=== PATIENT | female | born 1950 | race Caucasian/White ===

== ENCOUNTER 2019-05-04 11:27 | Outpatient (CLI) | payer SELFPAY ==
[2019-05-05 05:13] LABS: RPR Non Reactive (Non Reactive)
[2019-05-05 07:10] LABS: MUMPS ANTIBODIES, IGG 84.6 AU/mL (Immune >10.9); RUBEOLA ANTIBODIES, IGG >300.0 AU/mL (Immune >16.4)
== END 2019-05-04 23:59 | disposition home or self-care (01) ==
LOC: LAB 11:27
PROVIDERS: ATTEND Internal Medicine
DX: Z02.89 Encounter for other administrative examinations (principal)
CPT/HCPCS: 36415; 86592; 86735; 86762; 86765

== ENCOUNTER → 2020-11-21 | Outpatient (CLI) | payer MEDICAID ==
[~2020-11-21] VITALS: Ht 160 cm; Wt 83.5 kg
[2020-11-21] VITALS (9 sets, daily range): BP systolic 139–167; BP diastolic 62–78
[~2020-11-21] MED LIST: aminophylline 250mg/10ml inj. IV PRN; nitroGLYCERIN 0.4mg SUBLingual tab SL PRN; normal saline 500ml IV soln 500 ML IV ONE; regadenoson 0.4mg/5ml syringe IV ONE; regadenoson 0.4mg/5ml syringe IV PRN
== END | disposition home or self-care (01) ==
LOC: RAD 08:52
PROVIDERS: ATTEND Internal Medicine Interventional Cardiology
DX: Z01.810 Encounter for preprocedural cardiovascular examination (principal); R06.02 Shortness of breath; R03.0 Elevated blood-pressure reading, without diagnosis of hypertension; F17.210 Nicotine dependence, cigarettes, uncomplicated
CPT/HCPCS: 78452; 93017; A9500; J0280; J2785; J7040

== ENCOUNTER 2021-02-24 11:39 | Outpatient (CLI) | payer MEDICAID | END 2021-02-24 23:59 | disposition home or self-care (01) | LOC: RAD 11:39 | PROVIDERS: ATTEND Orthopaedic Surgery | DX: M17.12 Unilateral primary osteoarthritis, left knee (principal) | CPT/HCPCS: 73564 ==

== ENCOUNTER 2021-04-09 13:00 | Inpatient (IN) | payer MEDICAID ==
[2021-04-03 12:04] LABS: BASOPHILS % (AUTO) 0.6 % (0-1); EOSINOPHILS # (AUTO) 0.1 X10'3 (0-0.9); MONOCYTES # (AUTO) 0.7 X10'3 (0-0.9); RED CELL DISTRIBUTION WIDTH 13.4 % (11.5-14.5)
[2021-04-03 12:06] LABS: EOSINOPHILS % (AUTO) 0.8 % (0-6); LYMPHOCYTES # (AUTO) 1.3 X10'3 (1.1-4.8); LYMPHOCYTES % (AUTO) 16.6 % (21-51); MEAN CORPUSCULAR HEMOGLOBIN 29.6 PG (27.0-31.0); MEAN CORPUSCULAR HGB CONC 32.8 g/dL (33.0-36.5); MEAN CORPUSCULAR VOLUME 90.5 FL (78-98); MEAN PLATELET VOLUME 6.8 FL (7.4-10.4); MONOCYTES % (AUTO) 8.4 % (2-12); NEUTROPHILS % (AUTO) 73.6 % (42-75); PRE OP HEMATOCRIT 30.8 % (35.0-45.0); PRE OP PLATELET COUNT 649 X10'3 (140-440)
[2021-04-03 12:18] LABS: ALBUMIN 2.5 G/DL (3.4-5.0); ALBUMIN/GLOBULIN RATIO 0.5 (1.1-1.5); ALKALINE PHOSPHATASE 93 IU/L (46-116); BLOOD UREA NITROGEN 12 MG/DL (7-18); BUN/CREATININE RATIO 15.2 (6.6-38.0); CALCIUM 9.3 MG/DL (8.5-10.1); CHLORIDE 103 MMOL/L (99-107); CREATININE 0.79 MG/DL (0.40-0.90); PRE OP ALT 15 U/L (30-65); PRE OP ANION GAP 10 (8-16); PRE OP AST 16 U/L (10-37); PRE OP BILIRUB, TOTAL 0.3 MG/DL (0.0-1.0); PRE OP GLUCOSE 105 MG/DL (70-104); PRE OP POTASSIUM 4.3 MMOL/L (3.4-5.1); PRE OP SODIUM 140 MMOL/L (135-145); TOTAL CARBON DIOXIDE 27.2 MMOL/L (24-32); TOTAL PROTEIN 7.9 G/DL (6.4-8.2); eGFR 72 ML/MIN
[2021-04-03 12:51] LABS: PRE OP HEMOGLOBIN 10.1 g/dL (12.0-16.0)
[~2021-04-09] VITALS: Ht 160 cm; Wt 81.1 kg
[~2021-04-09 13:00] MED LIST changes: +CELE-193 PO; +DICL75TA5 PO; +OMEP20CA15 PO; +TRAM50TA2 PO; +TYL650S PO; +albuterol 2.5 MG/3 ML nebule NEB ONE; -aminophylline 250mg/10ml inj. IV PRN; +cefazolin/dext.iso 2gm/50ml IV ONE; +famotidine 20mg tablet PO ONE; -nitroGLYCERIN 0.4mg SUBLingual tab SL PRN; -normal saline 500ml IV soln 500 ML IV ONE; -regadenoson 0.4mg/5ml syringe IV ONE; -regadenoson 0.4mg/5ml syringe IV PRN; +ringers solution, lacted 1,000 ML IV SCH; +vancomycin 1,500 MG in NS 300ml IV soln IV ONE
[2021-04-16] VITALS (19 sets, daily range): BP systolic 119–157; BP diastolic 62–80
[2021-04-16] MEDS ORDERED: ringers solution, lacted 1,000 ML IV SCH ×2 (05:00→08:45)
[2021-04-16] MEDS ORDERED: cefazolin/dext.iso 2gm/50ml IV ONE (05:30)
[2021-04-16] MEDS ORDERED: vancomycin 1,500 MG in NS 300ml IV soln IV ONE (05:30)
[2021-04-16] MEDS ORDERED: famotidine 20mg tablet PO ONE (05:30)
[2021-04-16] MEDS ORDERED: Thrombin (Bovine) 5,000 unit vial TP ONE (06:44)
[2021-04-16] MEDS ORDERED: vancomycin 1,000mg inj ONE (06:44)
[2021-04-16] MEDS ORDERED: ROPIVAcaine inj 200 MG, ketorolac trometh inj. 15 MG, epiNEPHrine inj 0.6 MG, morphine ... IU ONE ×5 (06:50)
[2021-04-16] MEDS ORDERED: tetracaine 1% (10mg/ml) pres. free inj. ONE (07:18)
[2021-04-16] MEDS ORDERED: MIDAZolam 1 MG/ML 5ML VIAL ONE (07:20)
[2021-04-16] MEDS: TRANEXAMIC ACID 1 GM IN NACL,ISO-OS 100 ML IV ONE (08:03)
[2021-04-16] MEDS ORDERED: fentaNYL/PF 50MCG/1 ML 2ML syringe ONE (08:06)
[2021-04-16] MEDS ORDERED: morphine 4 MG/ML inj SYRINge IV PRN (08:45)
[2021-04-16] MEDS ORDERED: hydrALAZINE 20mg/ml inj. IV PRN (08:45)
[2021-04-16] MEDS ORDERED: proCHLORperazine 10 MG/2 ml inj IV PRN (08:45)
[2021-04-16] MEDS ORDERED: ondansetron/PF 4mg/2ml inj IV PRN ×2 (08:45→10:25)
[2021-04-16] MEDS ORDERED: ROPIVAcaine 0.2% (10 MG/5 ML) BOLUS INJECTION ADDCANAL PRN (08:45)
[2021-04-16] MEDS ORDERED: HYDROmorphone/PF 0.2 MG/ML SYRINGE IV PRN ×2 (08:45)
[2021-04-16] MEDS ORDERED: morphine 2 MG/ML inj. syringe IV PRN (08:45)
[2021-04-16] MEDS ORDERED: labetalol 20mg/4ml (5mg/ml) syringe IV PRN (08:45)
[2021-04-16] MEDS ORDERED: meperidine/PF 25mg/ml syringe IV PRN (08:45)
[2021-04-16] MEDS ORDERED: ROPIVAcaine 0.2%/PF PUMP/bolus 545 ML ADDCANAL SCH (08:45)
[2021-04-16] MEDS ORDERED: acetaminophen 1,000mg/100ml IV 100 ML IV PRN (08:45)
[2021-04-16] MEDS ORDERED: propofol inj 20 ML IV ONE ×3 (09:28)
[2021-04-16] MEDS ORDERED: ROPIVAcaine 0.5% (5mg/ml) 30ml vial ONE (09:28)
--- NOTE | 2021-04-16 10:10 | NUR ---
Received from OR via ORTHO BED , accompanied by Anesthesiologist NIGHAT and report given by Anesthesiolgist. PATIENT WITH 18G PIV IN LEFT HAND RUNNING LR AT 100. DENIES PAIN. RIGHT LE AT T12-L1 SENSATION. VSS. + DP ON RIGHT FOOT. PATIENT WITH KNEE WRAP IN PLACE AND POWDER PACK IN PLACE. NO DRAINAGE PRESENT. BILNIRALI SCDS. Addendum: 04/16/21 at 1029 by Albino Alcala RN, RN Amended: Links added.
[2021-04-16] MEDS ORDERED: acetaminophen 325mg tablet PO PRN (10:25)
[2021-04-16] MEDS ORDERED: tranexamic acid inj. 810 MG in normal saline 100ml IV soln 100 ML IV ONE ×2 (10:25→17:00)
[2021-04-16] MEDS ORDERED: magnesium hydroxide 30ml (MOM) UD suspension PO PRN (10:25)
[2021-04-16] MEDS ORDERED: diphenhydrAMINE 25mg capsule PO PRN ×2 (10:25)
[2021-04-16] MEDS ORDERED: HYDROmorphone inj. 0.5 MG/0.5 ML DISP.SYRIN IV PRN (10:25)
[2021-04-16] MEDS ORDERED: bisacodyl 10mg suppository rectal RC PRN (10:25)
[2021-04-16] MEDS ORDERED: HYDROmorphone 1 mg/ml syringe IV PRN (10:25)
[2021-04-16] MEDS ORDERED: oxyCODONE IR 5mg (immed. release) tablet PO PRN ×2 (10:25)
--- NOTE | 2021-04-16 11:40 | NUR ---
PATIENT HAS MET ALL CRITERIA FOR TRANSFER TO THE SURGICAL FLOOR. VSS. DRESSINGS INTACT. BED LOW, CALL LIGHT PRESENT AND 2 RAILS UP. RN PRESENT TO ACCEPT CARE OF PATIENT AND REPORT HAS BEEN CALLED. ALL QUESTIONS ANSWERED TO ACCEPTING RN. VSS. DENIES PAIN AT THIS TIME. PATIENT WITH 2 BAGS OF BELONGINGS PLACED ON DRESSER OF 351. DRESSINGS CDI AND DENIES PAIN. L2 SPINAL SENSATION LEVEL. Addendum: 04/16/21 at 1142 by Albino Goldman - DENIA RN Amended: Links added.
--- NOTE | 2021-04-16 11:42 | NUR ---
PATIENT HAS ARRIVED TO FLOOR. ALERT, ORIENTED AND APPROPRIATE, SHE UNDERSTANDS SOME KAZAKH AND IS ABLE TO COMMUNICATE NEEDS FOR THE MOST PART. GOOD PULSES IN BOTH FEET.
[2021-04-16] MEDS: gabapentin 300mg capsule PO SCH ×2 (13:59→21:26)
[2021-04-16] MEDS: potassium cl 20mEq in 1/2 NS 1,000 ML IV SCH (13:59)
--- NOTE | 2021-04-16 14:06 | NUR ---
REPORT GIVEN TO MIRIAM WHO IS ASSUMING CARE, PATIENT RESTING COMFORTABLY WITH FAMILY AT BEDSIDE. VITALS STABLE.
[2021-04-16] MEDS: acetaminophen 325mg tablet PO SCH ×2 (14:43→21:25)
[2021-04-16] MEDS: ceFAZolin/D5W- 1GM premix 50 ML IV SCH (15:54)
[2021-04-16] MEDS ORDERED: vancomycin/NS 1 GM ADD-VANTAGE 250 ML IV SCH (20:00)
[2021-04-16] MEDS ORDERED: sennosides 8.6mg tablet PO SCH (21:00)
[2021-04-16] MEDS: nicotine 21mg patch - 24 hr TD SCH (21:47)
[2021-04-17] VITALS: BP 120/71
[2021-04-17] MEDS: ceFAZolin/D5W- 1GM premix 50 ML IV SCH (00:50)
[2021-04-17] MEDS: potassium cl 20mEq in 1/2 NS 1,000 ML IV SCH ×3 (01:10→08:59)
[2021-04-17] MEDS: acetaminophen 325mg tablet PO SCH ×3 (02:42→14:59)
[2021-04-17 04:30] VITALS: BP 121/61
--- NOTE | 2021-04-17 06:10 | NUR ---
wilburn was discontinued at this time per md order
[2021-04-17 06:44] LABS: BASOPHILS # (AUTO) 0.1 X10'3 (0-0.2); BASOPHILS % (AUTO) 0.8 % (0-1); EOSINOPHILS % (AUTO) 0.6 % (0-6); HEMATOCRIT 24.7 % (35.0-45.0); HEMOGLOBIN 8.3 g/dl (12.0-16.0); LYMPHOCYTES # (AUTO) 1.7 X10'3 (1.1-4.8); LYMPHOCYTES % (AUTO) 20.8 % (21-51); MEAN CORPUSCULAR HEMOGLOBIN 29.8 PG (27.0-31.0); MEAN CORPUSCULAR HGB CONC 33.6 g/dL (33.0-36.5); MEAN CORPUSCULAR VOLUME 88.7 FL (78-98); MEAN PLATELET VOLUME 6.7 FL (7.4-10.4); MONOCYTES # (AUTO) 1.1 X10'3 (0-0.9); MONOCYTES % (AUTO) 13.9 % (2-12); NEUTROPHILS # (AUTO) 5.2 X10'3 (1.8-7.7); NEUTROPHILS % (AUTO) 63.9 % (42-75); PLATELET COUNT 532 X10'3 (140-440); RED BLOOD COUNT 2.79 X10'6 (4.20-5.60); RED CELL DISTRIBUTION WIDTH 14.1 % (11.5-14.5); WHITE BLOOD COUNT 8.2 X10'3 (4.5-11.0)
[2021-04-17 07:00] VITALS: BP_SYST 126; BP_SYST 135; BP_DIAS 64; BP_DIAS 75
[2021-04-17 07:03] LABS: ANION GAP 7 (8-16); CHLORIDE 102 MMOL/L (99-107); POTASSIUM 4.4 MMOL/L (3.5-5.1); SODIUM 133 MMOL/L (135-145); TOTAL CARBON DIOXIDE 23.9 MMOL/L (24-32)
--- NOTE | 2021-04-17 07:03 | NUR ---
Patient in room [facility] 351. I have received report from DENIA Loaiza and had the opportunity to ask questions and assume patient care.
[2021-04-17] MEDS ORDERED: pantoprazole 40mg Tablet.DR PO SCH (07:30)
[2021-04-17] MEDS ORDERED: enoxaparin 40mg/0.4ml syringe SQ SCH (08:00)
[2021-04-17] MEDS ORDERED: traMADol 50MG tablet PO SCH (08:00)
[2021-04-17] MEDS: gabapentin 300mg capsule PO SCH ×2 (08:09→14:58)
[2021-04-17] MEDS: nicotine 21mg patch - 24 hr TD SCH (08:11)
[2021-04-17 11:00] VITALS: BP 126/64
--- NOTE | 2021-04-17 14:13 | NUR ---
Primary Joint Consult: Pt s/p arthroplasty of R knee this admit. RD provided pt with written and verbal high protein diet education and RD contact information. Addendum: 04/17/21 at 1414 by Bobby Woodard - Insect Control Aide RD Amended: Links added. Addendum: 04/17/21 at [address] I have reviewed assessment by internet marketing manager
[2021-04-17] MEDS ORDERED: ACET-1008 PO (15:07)
[2021-04-17] MEDS ORDERED: GABA-534 PO (15:07)
--- NOTE | 2021-04-17 16:38 | NUR ---
Pt discharged to home, with all belongings, in private vehicle, accompanied by daughter. Discharge instructions and medications reviewed. New prescriptions e-scripted to [facility] in [place]. Dressing to right knee changed per written orders. Incision well approximated, alicia intact. Scant amount of sanguinous drainage present. Pt sent home with 2 powder ice packs, as well as education regarding OnQ pain pump. Pt instructed to notify Dr Mei with any concerns. Pt and pt's daughter state understanding and willingness to comply with all discharge instructions. IV DC'd, cannula intact. Pt escorted to front lobby via wheelchair by PCT.
[2021-04-17] MEDS ORDERED: celeCOXIB 100mg capsule PO SCH (20:00)
[2021-04-18] MEDS ORDERED: celeCOXIB 100mg capsule PO SCH (08:00)
--- NOTE | 2021-04-18 08:25 | NUR ---
t was unable to receive Rx from [facility] and wished to change to [facility] [address]. RX called to [facility] and cancelled at [facility].
[2021-04-18] MEDS ORDERED: acetaminophen 325mg tablet PO PRN (10:25)
== END 2021-04-17 16:38 | disposition home health service (06) | DRG 326 ==
LOC: PAS IN 04-16 05:35 → SUR 3N 04-16 11:31
PROVIDERS: ADMIT Orthopaedic Surgery; ATTEND Orthopaedic Surgery
PROC: 3E0T3BZ Introduction of Anesthetic Agent into Peripheral Nerves and Plexi, Percutaneous Approach (ICD-10-PCS; 2021-04-16)
PROC: 0SRC0J9 Replacement of Right Knee Joint with Synthetic Substitute, Cemented, Open Approach (ICD-10-PCS; principal; 2021-04-16 07:37)
DX: M17.11 Unilateral primary osteoarthritis, right knee (principal); M81.0 Age-related osteoporosis without current pathological fracture; Z79.899 Other long term (current) drug therapy
CPT/HCPCS: 36415; 73560; 80051; 80053; 82948; 85025; 87081; 93005; 97116; 97162; 97530; G0378; J0690; J1650; J2250; J2704; J2795; J3010; J3370; J3480; J3490; J7040; J7120; U0003; U0005

== ENCOUNTER 2021-07-18 08:53 | Outpatient (CLI) | payer MEDICAID ==
[~2021-07-18 08:53] MED LIST changes: +ACET-1008 PO; +GABA-534 PO; -TYL650S PO; -albuterol 2.5 MG/3 ML nebule NEB ONE; -cefazolin/dext.iso 2gm/50ml IV ONE; -famotidine 20mg tablet PO ONE; -ringers solution, lacted 1,000 ML IV SCH; -vancomycin 1,500 MG in NS 300ml IV soln IV ONE
[2021-07-18] MEDS ORDERED: TYL650S PO (10:23)
[2021-07-18 11:45] LABS: C-REACTIVE PROTEIN 6.76 MG/DL (0.0-0.5)
[2021-07-18 11:59] LABS: RHEUM FACTOR QUAL REFLEX TITER POSITIVE (Neg)
[2021-07-18 12:23] LABS: RF TITER >320 IU/ml (Neg)
[2021-07-19 14:51] LABS: ANTISTREPTOLYSIN O AB 50.7 IU/mL (0.0-200.0)
== END 2021-07-18 23:59 | disposition home or self-care (01) ==
LOC: LAB 08:53
PROVIDERS: ATTEND Physician Assistant
DX: M19.041 Primary osteoarthritis, right hand (principal); M19.042 Primary osteoarthritis, left hand; R29.898 Other symptoms and signs involving the musculoskeletal system
CPT/HCPCS: 36415; 86038; 86060; 86140; 86430; 86431

== ENCOUNTER 2021-07-18 12:00 | Outpatient (CLI) | payer MEDICAID ==
[2021-07-18 10:53] LABS: BASOPHILS # (AUTO) 0.1 X10'3 (0-0.2); BASOPHILS % (AUTO) 1.1 % (0-1); EOSINOPHILS # (AUTO) 0.3 X10'3 (0-0.9); EOSINOPHILS % (AUTO) 3.6 % (0-6); LYMPHOCYTES # (AUTO) 1.7 X10'3 (1.1-4.8); LYMPHOCYTES % (AUTO) 18.4 % (21-51); MEAN CORPUSCULAR HEMOGLOBIN 25.8 PG (27.0-31.0); MEAN CORPUSCULAR HGB CONC 31.6 g/dL (33.0-36.5); MEAN CORPUSCULAR VOLUME 81.7 FL (78-98); MEAN PLATELET VOLUME 6.8 FL (7.4-10.4); MONOCYTES # (AUTO) 0.7 X10'3 (0-0.9); MONOCYTES % (AUTO) 7.6 % (2-12); NEUTROPHILS # (AUTO) 6.3 X10'3 (1.8-7.7); NEUTROPHILS % (AUTO) 69.3 % (42-75); PRE OP PLATELET COUNT 577 X10'3 (140-440); RED BLOOD COUNT 3.68 X10'6 (4.20-5.60); RED CELL DISTRIBUTION WIDTH 16.5 % (11.5-14.5)
[2021-07-18 10:57] LABS: PRE OP HEMOGLOBIN 9.5 g/dL (12.0-16.0)
[2021-07-18 11:05] LABS: ALBUMIN/GLOBULIN RATIO 0.5 (1.1-1.5); ALKALINE PHOSPHATASE 104 IU/L (46-116); BLOOD UREA NITROGEN 21 MG/DL (7-18); BUN/CREATININE RATIO 26.3 (6.6-38.0); CALCIUM 9.3 MG/DL (8.5-10.1); CHLORIDE 100 MMOL/L (99-107); PRE OP ALT 23 U/L (30-65); PRE OP ANION GAP 10 (8-16); PRE OP AST 16 U/L (10-37); PRE OP BILIRUB, TOTAL 0.2 MG/DL (0.0-1.0); PRE OP GLUCOSE 100 MG/DL (70-104); PRE OP POTASSIUM 4.5 MMOL/L (3.4-5.1); PRE OP SODIUM 136 MMOL/L (135-145); TOTAL CARBON DIOXIDE 26.1 MMOL/L (24-32); TOTAL PROTEIN 8.6 G/DL (6.4-8.2); eGFR 71 ML/MIN
[~2021-07-18 12:00] MED LIST changes: +TYL650S PO
== END 2021-07-18 23:59 | disposition home or self-care (01) ==
LOC: PRE-OP 12:00 → EDSTATUS 07-23 13:30
PROVIDERS: ATTEND Orthopaedic Surgery
DX: Z01.812 Encounter for preprocedural laboratory examination (principal); Z20.822 Contact with and (suspected) exposure to COVID-19
CPT/HCPCS: 36415; 80053; 85025; 87081; U0003; U0005

== ENCOUNTER 2021-08-07 10:15 | Outpatient (CLI) | payer MEDICAID ==
[~2021-08-07 10:15] MED LIST changes: -ACET-1008 PO; -GABA-534 PO
[2021-08-07 10:57] LABS: BASOPHILS # (AUTO) 0.1 X10'3 (0-0.2); BASOPHILS % (AUTO) 1.1 % (0-1); EOSINOPHILS # (AUTO) 0.2 X10'3 (0-0.9); EOSINOPHILS % (AUTO) 2.7 % (0-6); HEMATOCRIT 30.6 % (35.0-45.0); HEMOGLOBIN 9.7 g/dl (12.0-16.0); LYMPHOCYTES # (AUTO) 1.6 X10'3 (1.1-4.8); LYMPHOCYTES % (AUTO) 25.1 % (21-51); MEAN CORPUSCULAR HEMOGLOBIN 26.1 PG (27.0-31.0); MEAN CORPUSCULAR HGB CONC 31.7 g/dL (33.0-36.5); MEAN CORPUSCULAR VOLUME 82.3 FL (78-98); MEAN PLATELET VOLUME 6.6 FL (7.4-10.4); MONOCYTES # (AUTO) 0.5 X10'3 (0-0.9); MONOCYTES % (AUTO) 8.2 % (2-12); NEUTROPHILS % (AUTO) 62.9 % (42-75); PLATELET COUNT 515 X10'3 (140-440); RED BLOOD COUNT 3.72 X10'6 (4.20-5.60); RED CELL DISTRIBUTION WIDTH 16.6 % (11.5-14.5); WHITE BLOOD COUNT 6.3 X10'3 (4.5-11.0)
[2021-08-07 11:35] LABS: % IRON SATURATION 13 % (11-46); IRON 29 UG/DL (49-151); TOTAL IRON BINDING CAPACITY 219 UG/DL (259-388)
[2021-08-21] MEDS ORDERED: FERR236T3 PO (10:44)
[2021-08-21] MEDS ORDERED: ACET-1025 PO (10:45)
== END 2021-08-07 23:59 | disposition home or self-care (01) ==
LOC: LAB 10:15
PROVIDERS: ATTEND Physician Assistant
DX: D50.9 Iron deficiency anemia, unspecified (principal); M06.9 Rheumatoid arthritis, unspecified
CPT/HCPCS: 36415; 82607; 82746; 83540; 83550; 85025

== ENCOUNTER 2021-09-03 06:26 | Inpatient (IN) | payer MEDICAID ==
[2021-08-21 11:00] LABS: BASOPHILS # (AUTO) 0.1 X10'3 (0-0.2); BASOPHILS % (AUTO) 1.2 % (0-1); EOSINOPHILS # (AUTO) 0.1 X10'3 (0-0.9); EOSINOPHILS % (AUTO) 1.8 % (0-6); LYMPHOCYTES # (AUTO) 1.7 X10'3 (1.1-4.8); LYMPHOCYTES % (AUTO) 24.3 % (21-51); MEAN CORPUSCULAR HEMOGLOBIN 27.3 PG (27.0-31.0); MEAN CORPUSCULAR HGB CONC 33.1 g/dL (33.0-36.5); MEAN CORPUSCULAR VOLUME 82.6 FL (78-98); MEAN PLATELET VOLUME 6.7 FL (7.4-10.4); MONOCYTES # (AUTO) 0.6 X10'3 (0-0.9); MONOCYTES % (AUTO) 7.8 % (2-12); NEUTROPHILS # (AUTO) 4.6 X10'3 (1.8-7.7); NEUTROPHILS % (AUTO) 64.9 % (42-75); PRE OP HEMATOCRIT 31.5 % (35.0-45.0); PRE OP PLATELET COUNT 453 X10'3 (140-440); RED BLOOD COUNT 3.81 X10'6 (4.20-5.60); RED CELL DISTRIBUTION WIDTH 16.8 % (11.5-14.5)
[2021-08-21 11:02] LABS: PRE OP HEMOGLOBIN 10.4 g/dL (12.0-16.0)
[2021-08-21 11:25] LABS: ALBUMIN 3.2 G/DL (3.4-5.0); ALBUMIN/GLOBULIN RATIO 0.6 (1.1-1.5); ALKALINE PHOSPHATASE 122 IU/L (46-116); BLOOD UREA NITROGEN 14 MG/DL (7-18); BUN/CREATININE RATIO 18.4 (6.6-38.0); CALCIUM 9.4 MG/DL (8.5-10.1); CHLORIDE 103 MMOL/L (99-107); CREATININE 0.76 MG/DL (0.40-0.90); PRE OP ALT 13 U/L (30-65); PRE OP ANION GAP 7 (8-16); PRE OP AST 7 U/L (10-37); PRE OP BILIRUB, TOTAL 0.4 MG/DL (0.0-1.0); PRE OP GLUCOSE 100 MG/DL (70-104); PRE OP POTASSIUM 4.3 MMOL/L (3.4-5.1); PRE OP SODIUM 138 MMOL/L (135-145); TOTAL CARBON DIOXIDE 28.1 MMOL/L (24-32); TOTAL PROTEIN 8.6 G/DL (6.4-8.2); eGFR 75 ML/MIN
[2021-09-03] VITALS (20 sets, daily range): BP systolic 110–139; BP diastolic 48–68
[~2021-09-03] VITALS: Ht 162.6 cm; Wt 77.2 kg
[~2021-09-03 06:26] MED LIST changes: +ACET-1025 PO; -DICL75TA5 PO; +FERR236T3 PO; -TYL650S PO; +ceFAZolin inj. 2,000 MG in dextrose 5%-water 100 ML IV ONE; +famotidine 20mg tablet PO ONE; +ringers solution, lacted 1,000 ML IV SCH; +tranexamic acid inj. 1,000 MG in 0.7% saline 100 ML PMX IV ONE; +vancomycin 1,500 MG in NS 300ml IV soln IV ONE
--- NOTE | 2021-09-03 07:00 | NUR ---
PT PREPPED FOR SURGERY, IV STARTED IN LEFT HAND. PT SPEAKS ROMANSH, DAUGHTER AT BEDSIDE. PT HAS PALPABLE PEDAL PULSES IN BOTH LOWER EXTREMITIES, CIRCULATION AND SENSATION INTACT. GOOD CAPILLARY REFILL. PT COMPLAINS OF PAIN OF AN 8 ON 1-10 SCALE WITH AMBULATION. PT STATES SHE DID NOT WATCH THE VIDEO BECAUSE SHE RECENTLY HAD HER OTHER KNEE REPLACEMENT AND WATCHED IT THEN. PT DID USE THE MUROPURICIN OINTMENT IN HER NOSE FOR 5 DAYS AND SHOWERED WITH THE SPECIAL SOAP HIBACLENS, WITH THE LAST TIME BEING THIS MORNING.
[2021-09-03] MEDS ORDERED: epiNEPHrine 1 mg/ml inj ONE (08:01)
[2021-09-03] MEDS ORDERED: ketorolac trometh. 30mg/ml inj. ONE (08:01)
[2021-09-03] MEDS ORDERED: vancomycin 1,000mg inj ONE (08:02)
[2021-09-03] MEDS ORDERED: morphine 10mg/ml inj. ONE (08:02)
[2021-09-03] MEDS ORDERED: ROPIVAcaine 0.5% (5mg/ml) 30ml vial ONE ×2 (08:02→08:22)
[2021-09-03] MEDS ORDERED: tetracaine 1% (10mg/ml) pres. free inj. ONE (08:22)
[2021-09-03] MEDS ORDERED: morphine /PF 1mg/ml 10ml inj. ONE (08:42)
[2021-09-03] MEDS ORDERED: midazolam 1 mg/ML 2ml injection ONE (08:43)
[2021-09-03] MEDS ORDERED: LIDOcaine 1%/PF 5ML 10 MG/ML VIAL ONE (09:23)
[2021-09-03] MEDS ORDERED: propofol inj 20 ML IV ONE ×4 (09:23→10:57)
[2021-09-03] MEDS ORDERED: ringers solution, lacted 1,000 ML IV SCH (10:00)
[2021-09-03] MEDS ORDERED: morphine 2 MG/ML inj. syringe IV PRN (10:00)
[2021-09-03] MEDS ORDERED: morphine 4 MG/ML inj SYRINge IV PRN (10:00)
[2021-09-03] MEDS ORDERED: proCHLORperazine 10 MG/2 ml inj IV PRN (10:00)
[2021-09-03] MEDS ORDERED: labetalol 20mg/4ml (5mg/ml) syringe IV PRN (10:00)
[2021-09-03] MEDS ORDERED: HYDROmorphone/PF 0.2 MG/ML SYRINGE IV PRN ×2 (10:00)
[2021-09-03] MEDS ORDERED: acetaminophen 1,000mg/100ml IV 100 ML IV PRN (10:00)
[2021-09-03] MEDS ORDERED: ondansetron/PF 4mg/2ml inj IV PRN ×2 (10:00→10:05)
[2021-09-03] MEDS ORDERED: hydrALAZINE 20mg/ml inj. IV PRN (10:00)
[2021-09-03] MEDS ORDERED: meperidine/PF 25mg/ml syringe IV PRN (10:00)
[2021-09-03] MEDS: ROPIVAcaine 0.2%/PF PUMP/bolus 545 ML ADDCANAL SCH ×2 (10:05→12:32)
[2021-09-03] MEDS ORDERED: naloxone 0.4 mg/ml inj IV PRN ×2 (10:05→12:25)
[2021-09-03] MEDS ORDERED: ROPIVAcaine 0.2% (10 MG/5 ML) BOLUS INJECTION ADDCANAL PRN (10:05)
[2021-09-03] MEDS ORDERED: naloxone 2mg/2ml inj 2 MG in normal saline 500ml IV soln 500 ML IV PRN (10:05)
[2021-09-03] MEDS ORDERED: diphenhydrAMINE 50 mg/ml inj IV PRN (10:05)
[2021-09-03] MEDS ORDERED: ePHEDrine 50MG/ML INJ. ONE (11:35)
--- NOTE | 2021-09-03 12:04 | NUR ---
Received from OR via BED, accompanied by Anesthesiologist DR DISLA and report given by Anesthesiologist AND QUALITY CONTROL ASSOCIATE. PT DROWSY, DENIES PAIN. LEFT KNEE W/LEG WRAP, DRSG, POWDER PACK CDI, ADC CATHETER INTACT. Addendum: 09/03/21 at 1228 by Cande Booth RN Amended: Links added.
[2021-09-03] MEDS ORDERED: oxyCODONE IR 5mg (immed. release) tablet PO PRN ×2 (12:25)
[2021-09-03] MEDS ORDERED: bisacodyl 10mg suppository rectal RC PRN (12:25)
[2021-09-03] MEDS ORDERED: magnesium hydroxide 30ml (MOM) UD suspension PO PRN (12:25)
[2021-09-03] MEDS: potassium cl 20mEq in 1/2 NS 1,000 ML IV SCH ×2 (12:25→19:35)
--- NOTE | 2021-09-03 13:36 | NUR ---
Received report from DENIA Castellon
--- NOTE | 2021-09-03 13:44 | NUR ---
Report called to receiving nurse. Transferred via BED, NO Belongings. NAUSEA SUBSIDED AFTER SMALL EMESIS AND ZOFRAN GIVEN. RECEIVING RN AT BEDSIDE TO RECEIVE PT. BLL, CALL LIGHT GIVEN, SIDE RAILS UP X 2. Special Issues communicated to receiving nurse. YES. Addendum: 09/03/21 at 1354 by Cande Booth RN Amended: Links added.
[2021-09-03] MEDS ORDERED: acetaminophen 325mg tablet PO PRN (14:05)
[2021-09-03] MEDS ORDERED: tranexamic acid inj. 800 MG in normal saline 100ml IV soln 92 ML IV ONE (15:15)
[2021-09-03] MEDS: ceFAZolin/D5W- 1GM premix 50 ML IV SCH (16:34)
--- NOTE | 2021-09-03 17:35 | NUR ---
Oral temp was unable to register with oral thermometers, axillary temp revealed 93 axillary, patient has struggled with nausea/vomiting since receiving from [facility]. Warm blankets applied, recheck of temp revealed 94 axillary with oral temp still not reading. Went to [facility] to get yumiko trevino and on recheck oral temp was 97.3
--- NOTE | 2021-09-03 18:26 | NUR ---
report given to DENIA Land
--- NOTE | 2021-09-03 18:46 | NUR ---
Patient in room ORTHO 4008. I have received report from Gaby LOZA and had the opportunity to ask questions and assume patient care.
[2021-09-03] MEDS: sennosides 8.6mg tablet PO SCH (19:36)
[2021-09-03] MEDS ORDERED: vancomycin/NS 1 GM ADD-VANTAGE 250 ML IV SCH (20:00)
[2021-09-04] MEDS: ceFAZolin/D5W- 1GM premix 50 ML IV SCH (00:43)
[2021-09-04 02:08] VITALS: BP 108/55
[2021-09-04] MEDS: potassium cl 20mEq in 1/2 NS 1,000 ML IV SCH ×3 (05:35→19:16)
[2021-09-04 06:00] VITALS: BP 123/57
--- NOTE | 2021-09-04 06:05 | NUR ---
Problems reprioritized. Patient report given, questions answered & plan of care reviewed with Gaby LOZA.
--- NOTE | 2021-09-04 06:30 | NUR ---
Patient report was received by DENIA Land
[2021-09-04] MEDS: traMADol 50MG tablet PO SCH (07:15)
[2021-09-04] MEDS: pantoprazole 40mg Tablet.DR PO SCH (07:16)
[2021-09-04] MEDS: ferrous gluconate 324mg tablet PO SCH (07:17)
--- NOTE | 2021-09-04 07:51 | NUR ---
Per therapy patient had area of new bleeding on dressing, dressing completely saturated with francine blood. pressure dressing applied
[2021-09-04] MEDS: enoxaparin 40mg/0.4ml syringe SQ SCH (08:00)
[2021-09-04] MEDS ORDERED: celeCOXIB 100mg capsule PO SCH (08:00)
--- NOTE | 2021-09-04 08:22 | NUR ---
Per daughters request she asks if we give the lovenox later this afternoon as this is the time of day she is able to give it to her mother at home.
[2021-09-04] MEDS ORDERED: HYDROcodone/acetaminophen 10/325mg tab PO PRN (08:35)
[2021-09-04] MEDS ORDERED: HYDROcodone/acetaminophen 5mg/325mg tablet PO PRN (08:35)
[2021-09-04] MEDS ORDERED: CELE200C PO (08:38)
--- NOTE | 2021-09-04 08:39 | NUR ---
Called MD Mei to ask if okay if we switch to norco instead of oxy for pain control, also received orders to call in cele[facility]x to [facility] [address] [facility].
[2021-09-04 08:41] LABS: BASOPHILS # (AUTO) 0.1 X10'3 (0-0.2); BASOPHILS % (AUTO) 0.8 % (0-1); EOSINOPHILS % (AUTO) 0.6 % (0-6); HEMATOCRIT 27.6 % (35.0-45.0); HEMOGLOBIN 8.8 g/dl (12.0-16.0); LYMPHOCYTES # (AUTO) 1.5 X10'3 (1.1-4.8); LYMPHOCYTES % (AUTO) 21.4 % (21-51); MEAN CORPUSCULAR HGB CONC 31.9 g/dL (33.0-36.5); MEAN CORPUSCULAR VOLUME 84.7 FL (78-98); MEAN PLATELET VOLUME 7.4 FL (7.4-10.4); MONOCYTES % (AUTO) 13.3 % (2-12); NEUTROPHILS # (AUTO) 4.6 X10'3 (1.8-7.7); NEUTROPHILS % (AUTO) 63.9 % (42-75); PLATELET COUNT 331 X10'3 (140-440); RED BLOOD COUNT 3.26 X10'6 (4.20-5.60); RED CELL DISTRIBUTION WIDTH 16.6 % (11.5-14.5); WHITE BLOOD COUNT 7.2 X10'3 (4.5-11.0)
[2021-09-04 09:39] LABS: ALANINE AMINOTRANSFERASE 18 U/L (12-78); ALBUMIN 2.3 G/DL (3.4-5.0); ALBUMIN/GLOBULIN RATIO 0.5 (1.1-1.5); ALKALINE PHOSPHATASE 95 IU/L (46-116); ANION GAP 6 (8-16); ASPARTATE AMINO TRANSFERASE 14 U/L (10-37); BILIRUBIN,TOTAL 0.6 MG/DL (0.1-1.0); BLOOD UREA NITROGEN 14 MG/DL (7-18); BUN/CREATININE RATIO 20.3 (6.6-38.0); CALCIUM 8.3 MG/DL (8.5-10.1); CHLORIDE 101 MMOL/L (99-107); CREATININE 0.69 MG/DL (0.40-0.90); GLUCOSE 137 MG/DL (70-104); POTASSIUM 4.1 MMOL/L (3.5-5.1); SODIUM 133 MMOL/L (135-145); TOTAL CARBON DIOXIDE 26.5 MMOL/L (24-32); TOTAL PROTEIN 6.7 G/DL (6.4-8.2); eGFR 84 ML/MIN
[2021-09-04 10:00] VITALS: BP 129/62
--- NOTE | 2021-09-04 11:13 | NUR ---
Pt s/p left TKA. Written protein education with RD contact information placed in patient's chart. Will remain available. Addendum: 09/04/21 at [address]ía [address]berg RD Amended: Links added.
[2021-09-04] MEDS ORDERED: HYDROmorphone inj. 0.5 MG/0.5 ML DISP.SYRIN IV PRN (11:30)
[2021-09-04] MEDS ORDERED: HYDROmorphone 1 mg/ml syringe IV PRN (11:30)
--- NOTE | 2021-09-04 11:32 | NUR ---
Placed call to MD for orders for medication for breakthrough pain, received orders for IV dilaudid q4 prn. Also placed call to operating room to see if anesthesiologist could come look at patients ONQ as she does not feel any relief of pain. OR charge weigher stated he would speak to MD.
--- NOTE | 2021-09-04 13:39 | NUR ---
Dr. Oleary at bedside, unable to redo onQ cath due to lovenox administration today. Dr. Mei notified, family aware of plan to potentially replace onQ tomorrow pending how she does with pain control and physical therapy this afternoon.
[2021-09-04 14:00] VITALS: BP 123/57
[2021-09-04] MEDS ORDERED: oxyCODONE/APAP 5-325mg tablet PO PRN (16:30)
[2021-09-04] MEDS ORDERED: oxyCODONE/APAP 10/325mg tablet PO PRN (16:30)
[2021-09-04 18:00] VITALS: BP 132/66
--- NOTE | 2021-09-04 18:28 | NUR ---
Patient report was given to DENIA Garcia.
--- NOTE | 2021-09-04 19:11 | NUR ---
Patient in room ORTHO 4008. I have received report from GabyRN and DENIA Chavez and had the opportunity to ask questions and assume patient care.
[2021-09-04] MEDS: celeCOXIB 100mg capsule PO SCH (20:05)
[2021-09-04] MEDS: sennosides 8.6mg tablet PO SCH (20:05)
[2021-09-04] MEDS: oxyCODONE/APAP 10/325mg tablet PO PRN (21:54)
[2021-09-04 22:00] VITALS: BP 116/57
[2021-09-05] MEDS: oxyCODONE/APAP 10/325mg tablet PO PRN ×3 (02:05→09:52)
[2021-09-05] MEDS: potassium cl 20mEq in 1/2 NS 1,000 ML IV SCH (04:25)
--- NOTE | 2021-09-05 06:01 | NUR ---
Problems reprioritized. Patient report given, questions answered & plan of care reviewed with DENIA Griffin.
[2021-09-05 06:17] VITALS: BP 128/66
--- NOTE | 2021-09-05 06:17 | NUR ---
received report from DENIA Garcia
[2021-09-05] MEDS: enoxaparin 40mg/0.4ml syringe SQ SCH ×2 (06:23→11:30)
[2021-09-05 07:51] LABS: BASOPHILS # (AUTO) 0.1 X10'3 (0-0.2); BASOPHILS % (AUTO) 0.8 % (0-1); EOSINOPHILS # (AUTO) 0.1 X10'3 (0-0.9); EOSINOPHILS % (AUTO) 1.3 % (0-6); HEMATOCRIT 25.9 % (35.0-45.0); HEMOGLOBIN 8.7 g/dl (12.0-16.0); LYMPHOCYTES # (AUTO) 1.5 X10'3 (1.1-4.8); LYMPHOCYTES % (AUTO) 16.1 % (21-51); MEAN CORPUSCULAR HEMOGLOBIN 27.8 PG (27.0-31.0); MEAN CORPUSCULAR HGB CONC 33.5 g/dL (33.0-36.5); MEAN CORPUSCULAR VOLUME 83.2 FL (78-98); MEAN PLATELET VOLUME 6.7 FL (7.4-10.4); MONOCYTES % (AUTO) 11.3 % (2-12); NEUTROPHILS # (AUTO) 6.4 X10'3 (1.8-7.7); NEUTROPHILS % (AUTO) 70.5 % (42-75); PLATELET COUNT 382 X10'3 (140-440); RED BLOOD COUNT 3.11 X10'6 (4.20-5.60); RED CELL DISTRIBUTION WIDTH 16.5 % (11.5-14.5); WHITE BLOOD COUNT 9.1 X10'3 (4.5-11.0)
[2021-09-05] MEDS: ferrous gluconate 324mg tablet PO SCH (07:56)
[2021-09-05] MEDS: pantoprazole 40mg Tablet.DR PO SCH (07:56)
[2021-09-05] MEDS: celeCOXIB 100mg capsule PO SCH (07:57)
[2021-09-05] MEDS: traMADol 50MG tablet PO SCH (07:57)
[2021-09-05] MEDS ORDERED: lactose-reduced food (Ensure Enlive) - 237ml bottle PO SCH (08:00)
--- NOTE | 2021-09-05 08:57 | NUR ---
call md office to send percocet prescription
[2021-09-05] MEDS: ROPIVAcaine 0.2%/PF PUMP/bolus 545 ML ADDCANAL SCH (10:05)
[2021-09-05 11:04] VITALS: BP 103/61
--- NOTE | 2021-09-05 12:04 | NUR ---
patient discharged to home in stable condition via wheelchair to private vehicle. all discharge instructions given to patient and daughter and all questions were answered. [facility]. patient sent with toilet seat riser. 20 gauge iv removed from right wrist cannula intact no complications. ONQ was non functioning therefor was removed and covered with a band aid. patient left in stable condition with no complications
== END 2021-09-05 12:05 | disposition home health service (06) | DRG 326 ==
LOC: PAS IN 06:26 → ORTHO 4S 13:50
PROVIDERS: ADMIT Orthopaedic Surgery; ATTEND Orthopaedic Surgery
PROC: 3E0T3BZ Introduction of Anesthetic Agent into Peripheral Nerves and Plexi, Percutaneous Approach (ICD-10-PCS; 2021-09-03)
PROC: 0SRD0J9 Replacement of Left Knee Joint with Synthetic Substitute, Cemented, Open Approach (ICD-10-PCS; principal; 2021-09-03 08:42)
DX: M17.12 Unilateral primary osteoarthritis, left knee (principal)
CPT/HCPCS: 36415; 73560; 80053; 82948; 85025; 87081; 97110; 97116; 97161; 97530; A4215; A4615; A6449; A7000; C1713; C1758; C1776; C9250; G0378; J0171; J0690; J0780; J1170; J1650; J1885; J2250; J2274; J2405; J2704; J2795; J3370; J3480; J3490; J7040; J7060; J7120; U0003

== ENCOUNTER 2022-06-22 14:26 | Outpatient (CLI) | payer MEDICAID ==
[~2022-06-22 14:26] MED LIST changes: +CELE200C PO; -ceFAZolin inj. 2,000 MG in dextrose 5%-water 100 ML IV ONE; -famotidine 20mg tablet PO ONE; -ringers solution, lacted 1,000 ML IV SCH; -tranexamic acid inj. 1,000 MG in 0.7% saline 100 ML PMX IV ONE; -vancomycin 1,500 MG in NS 300ml IV soln IV ONE
[2022-06-22 15:25] LABS: ALANINE AMINOTRANSFERASE 14 U/L (12-78); ALBUMIN 3.1 G/DL (3.4-5.0); ALBUMIN/GLOBULIN RATIO 0.6 (1.1-1.5); ALKALINE PHOSPHATASE 117 IU/L (46-116); ANION GAP 7 (8-16); ASPARTATE AMINO TRANSFERASE 15 U/L (10-37); BILIRUBIN,TOTAL 0.3 MG/DL (0.1-1.0); BLOOD UREA NITROGEN 14 MG/DL (7-18); BUN/CREATININE RATIO 18.2 (10.0-20.0); CALCIUM 9.6 MG/DL (8.5-10.1); CHLORIDE 102 MMOL/L (99-107); CHOL/HDL RATIO 3.4 (0.00-4.99); CHOLESTEROL 192 MG/DL (0-200); CREATININE 0.77 MG/DL (0.40-0.90); GLUCOSE 101 MG/DL (70-104); HDL CHOLESTEROL 56 MG/DL (35-60); LDL CHOLESTEROL 111 MG/DL (50-100); POTASSIUM 4.5 MMOL/L (3.5-5.1); SODIUM 138 MMOL/L (135-145); TOTAL CARBON DIOXIDE 28.9 MMOL/L (24-32); TOTAL PROTEIN 8.2 G/DL (6.4-8.2); TRIGLYCERIDES 119 MG/DL (20-135); eGFR 74 ML/MIN
== END 2022-06-22 23:59 | disposition home or self-care (01) ==
LOC: LAB 14:26
PROVIDERS: ATTEND Physician Assistant
DX: M19.041 Primary osteoarthritis, right hand (principal); M19.042 Primary osteoarthritis, left hand; M25.579 Pain in unspecified ankle and joints of unspecified foot; M79.89 Other specified soft tissue disorders; M19.072 Primary osteoarthritis, left ankle and foot; M85.872 Other specified disorders of bone density and structure, left ankle and foot; M19.071 Primary osteoarthritis, right ankle and foot; M85.871 Other specified disorders of bone density and structure, right ankle and foot; M85.641 Other cyst of bone, right hand; M18.11 Unilateral primary osteoarthritis of first carpometacarpal joint, right hand; M25.511 Pain in right shoulder; M06.9 Rheumatoid arthritis, unspecified
CPT/HCPCS: 36415; 73030; 73130; 73610; 80053; 80061; 86200

== ENCOUNTER 2023-03-02 11:31 | Outpatient (CLI) | payer MEDICAID | END 2023-03-02 23:59 | disposition home or self-care (01) | LOC: RAD 11:31 | PROVIDERS: ATTEND Orthopaedic Surgery | DX: Z48.89 Encounter for other specified surgical aftercare (principal); Z96.653 Presence of artificial knee joint, bilateral | CPT/HCPCS: 73564 ==

== ENCOUNTER 2023-03-02 11:43 | Outpatient (CLI) | payer MEDICAID ==
[2023-03-02 12:17] LABS: BASOPHILS # (AUTO) 0.1 X10'3 (0-0.2); EOSINOPHILS # (AUTO) 0.1 X10'3 (0-0.9); EOSINOPHILS % (AUTO) 1.8 % (0-6); HEMATOCRIT 38.4 % (35.0-45.0); HEMOGLOBIN 12.7 g/dl (12.0-16.0); LYMPHOCYTES # (AUTO) 1.1 X10'3 (1.1-4.8); LYMPHOCYTES % (AUTO) 17.9 % (21-51); MEAN CORPUSCULAR HEMOGLOBIN 32.3 PG (27.0-31.0); MEAN CORPUSCULAR HGB CONC 33.2 g/dL (33.0-36.5); MEAN CORPUSCULAR VOLUME 97.3 FL (78-98); MEAN PLATELET VOLUME 7.2 FL (7.4-10.4); MONOCYTES # (AUTO) 0.6 X10'3 (0-0.9); MONOCYTES % (AUTO) 8.9 % (2-12); NEUTROPHILS # (AUTO) 4.4 X10'3 (1.8-7.7); NEUTROPHILS % (AUTO) 70.4 % (42-75); PLATELET COUNT 321 X10'3 (140-440); RED BLOOD COUNT 3.94 X10'6 (4.20-5.60); RED CELL DISTRIBUTION WIDTH 15.8 % (11.5-14.5); WHITE BLOOD COUNT 6.3 X10'3 (4.5-11.0)
[2023-03-02 12:41] LABS: ALANINE AMINOTRANSFERASE 16 U/L (12-78); ALBUMIN 3.4 G/DL (3.4-5.0); ASPARTATE AMINO TRANSFERASE 17 U/L (10-37); BLOOD UREA NITROGEN 11 MG/DL (7-18); C-REACTIVE PROTEIN 2.29 MG/DL (0.0-0.5); CREATININE 0.75 MG/DL (0.40-0.90); eGFR 76 ML/MIN
== END 2023-03-02 23:59 | disposition home or self-care (01) ==
LOC: RAD 11:43
PROVIDERS: ATTEND Student in an Organized Health Care Education/Training Program
DX: M05.9 Rheumatoid arthritis with rheumatoid factor, unspecified (principal)
CPT/HCPCS: 36415; 82040; 82565; 84450; 84460; 84520; 85025; 85651; 86140

== ENCOUNTER 2023-10-05 11:24 | Outpatient (CLI) | payer MEDICAID ==
[2023-10-05 11:57] LABS: BASOPHILS # (AUTO) 0.1 X10'3 (0-0.2); BASOPHILS % (AUTO) 1.3 % (0-1); EOSINOPHILS # (AUTO) 0.2 X10'3 (0-0.9); EOSINOPHILS % (AUTO) 3.5 % (0-6); HEMATOCRIT 39.2 % (35.0-45.0); HEMOGLOBIN 12.9 g/dl (12.0-16.0); LYMPHOCYTES # (AUTO) 1.7 X10'3 (1.1-4.8); LYMPHOCYTES % (AUTO) 32.5 % (21-51); MEAN CORPUSCULAR HEMOGLOBIN 31.9 PG (27.0-31.0); MEAN CORPUSCULAR HGB CONC 32.9 g/dL (33.0-36.5); MEAN CORPUSCULAR VOLUME 97.1 FL (78-98); MEAN PLATELET VOLUME 7.4 FL (7.4-10.4); MONOCYTES # (AUTO) 0.6 X10'3 (0-0.9); NEUTROPHILS # (AUTO) 2.8 X10'3 (1.8-7.7); NEUTROPHILS % (AUTO) 51.7 % (42-75); PLATELET COUNT 282 X10'3 (140-440); RED BLOOD COUNT 4.04 X10'6 (4.20-5.60); RED CELL DISTRIBUTION WIDTH 15.2 % (11.5-14.5); WHITE BLOOD COUNT 5.4 X10'3 (4.5-11.0)
[2023-10-05 12:14] LABS: ALANINE AMINOTRANSFERASE 23 U/L (12-78); ALBUMIN 3.5 G/DL (3.4-5.0); ALBUMIN/GLOBULIN RATIO 0.9 (1.1-1.5); ALKALINE PHOSPHATASE 109 IU/L (46-116); ANION GAP 8 (8-16); ASPARTATE AMINO TRANSFERASE 19 U/L (10-37); BILIRUBIN,TOTAL 0.6 MG/DL (0.1-1.0); BLOOD UREA NITROGEN 13 MG/DL (7-18); BUN/CREATININE RATIO 17.8 (10.0-20.0); C-REACTIVE PROTEIN 0.11 MG/DL (0.0-0.5); CALCIUM 8.8 MG/DL (8.5-10.1); CHLORIDE 106 MMOL/L (99-107); CREATININE 0.73 MG/DL (0.40-0.90); GLUCOSE 87 MG/DL (70-104); POTASSIUM 4.2 MMOL/L (3.5-5.1); SODIUM 140 MMOL/L (135-145); TOTAL CARBON DIOXIDE 25.8 MMOL/L (24-32); TOTAL PROTEIN 7.5 G/DL (6.4-8.2); eGFR 78 ML/MIN
== END 2023-10-05 23:59 | disposition home or self-care (01) ==
LOC: LAB 11:24
PROVIDERS: ATTEND Student in an Organized Health Care Education/Training Program
DX: Z79.899 Other long term (current) drug therapy (principal)
CPT/HCPCS: 36415; 80053; 85025; 85651; 86140

== ENCOUNTER 2023-11-17 10:07 | Outpatient (CLI) | payer MEDICAID ==
[2023-11-17 11:35] LABS: ALANINE AMINOTRANSFERASE 19 U/L (12-78); ALBUMIN 3.5 G/DL (3.4-5.0); ASPARTATE AMINO TRANSFERASE 21 U/L (10-37); BLOOD UREA NITROGEN 14 MG/DL (7-18); C-REACTIVE PROTEIN 0.85 MG/DL (0.0-0.5); CREATININE 0.66 MG/DL (0.40-0.90); eGFR 88 ML/MIN
[2023-11-17 11:41] LABS: BASOPHILS # (AUTO) 0.1 X10'3 (0-0.2); BASOPHILS % (AUTO) 1.2 % (0-1); EOSINOPHILS # (AUTO) 0.1 X10'3 (0-0.9); EOSINOPHILS % (AUTO) 2.5 % (0-6); HEMATOCRIT 38.8 % (35.0-45.0); HEMOGLOBIN 12.7 g/dl (12.0-16.0); LYMPHOCYTES # (AUTO) 1.9 X10'3 (1.1-4.8); LYMPHOCYTES % (AUTO) 36.2 % (21-51); MEAN CORPUSCULAR HGB CONC 32.8 g/dL (33.0-36.5); MEAN CORPUSCULAR VOLUME 97.4 FL (78-98); MEAN PLATELET VOLUME 7.5 FL (7.4-10.4); MONOCYTES # (AUTO) 0.4 X10'3 (0-0.9); MONOCYTES % (AUTO) 7.9 % (2-12); NEUTROPHILS # (AUTO) 2.8 X10'3 (1.8-7.7); NEUTROPHILS % (AUTO) 52.2 % (42-75); PLATELET COUNT 320 X10'3 (140-440); RED BLOOD COUNT 3.99 X10'6 (4.20-5.60); RED CELL DISTRIBUTION WIDTH 15.2 % (11.5-14.5); WHITE BLOOD COUNT 5.4 X10'3 (4.5-11.0)
== END 2023-11-17 23:59 | disposition home or self-care (01) ==
LOC: RAD 10:07
PROVIDERS: ATTEND Family Medicine
DX: Z79.899 Other long term (current) drug therapy (principal)
CPT/HCPCS: 36415; 82040; 82306; 82565; 84450; 84460; 84520; 85025; 85651; 86140

== ENCOUNTER 2024-05-15 14:00 | Outpatient (CLI) | payer MEDICAID ==
[2024-05-15 14:30] LABS: BASOPHILS # (AUTO) 0.1 X10'3 (0-0.2); EOSINOPHILS # (AUTO) 0.1 X10'3 (0-0.9); HEMATOCRIT 38.8 % (35.0-45.0); HEMOGLOBIN 12.8 g/dl (12.0-16.0); LYMPHOCYTES # (AUTO) 1.6 X10'3 (1.1-4.8); LYMPHOCYTES % (AUTO) 23.5 % (21-51); MEAN CORPUSCULAR HEMOGLOBIN 32.7 PG (27.0-31.0); MEAN CORPUSCULAR HGB CONC 33.1 g/dL (33.0-36.5); MEAN CORPUSCULAR VOLUME 98.9 FL (78-98); MEAN PLATELET VOLUME 7.6 FL (7.4-10.4); MONOCYTES # (AUTO) 0.6 X10'3 (0-0.9); MONOCYTES % (AUTO) 8.3 % (2-12); NEUTROPHILS # (AUTO) 4.4 X10'3 (1.8-7.7); NEUTROPHILS % (AUTO) 65.2 % (42-75); PLATELET COUNT 313 X10'3 (140-440); RED BLOOD COUNT 3.93 X10'6 (4.20-5.60); RED CELL DISTRIBUTION WIDTH 15.2 % (11.5-14.5); WHITE BLOOD COUNT 6.8 X10'3 (4.5-11.0)
[2024-05-15 14:50] LABS: ALANINE AMINOTRANSFERASE 28 U/L (12-78); ALBUMIN 3.9 G/DL (3.4-5.0); ALBUMIN/GLOBULIN RATIO 0.9 (1.1-1.5); ALKALINE PHOSPHATASE 119 IU/L (46-116); ANION GAP 7 (8-16); ASPARTATE AMINO TRANSFERASE 24 U/L (10-37); BILIRUBIN,TOTAL 0.7 MG/DL (0.1-1.0); BLOOD UREA NITROGEN 13 MG/DL (7-18); BUN/CREATININE RATIO 18.3 (10.0-20.0); C-REACTIVE PROTEIN 0.32 MG/DL (0.0-0.5); CALCIUM 9.1 MG/DL (8.5-10.1); CHLORIDE 105 MMOL/L (99-107); CREATININE 0.71 MG/DL (0.40-0.90); GLUCOSE 105 MG/DL (70-104); SODIUM 137 MMOL/L (135-145); TOTAL CARBON DIOXIDE 24.9 MMOL/L (24-32); TOTAL PROTEIN 8.1 G/DL (6.4-8.2); eGFR 81 ML/MIN
== END 2024-05-15 23:59 | disposition home or self-care (01) ==
LOC: RAD 14:00
PROVIDERS: ATTEND Student in an Organized Health Care Education/Training Program
DX: Z79.899 Other long term (current) drug therapy (principal)
CPT/HCPCS: 36415; 80053; 85025; 85651; 86140

== ENCOUNTER 2024-08-14 13:54 | Outpatient (CLI) | payer MEDICAID ==
[2024-08-14 14:28] LABS: BASOPHILS # (AUTO) 0.1 X10'3 (0-0.2); BASOPHILS % (AUTO) 1.5 % (0-1); EOSINOPHILS # (AUTO) 0.2 X10'3 (0-0.9); EOSINOPHILS % (AUTO) 3.3 % (0-6); HEMOGLOBIN 13.3 g/dl (12.0-16.0); LYMPHOCYTES # (AUTO) 2.4 X10'3 (1.1-4.8); LYMPHOCYTES % (AUTO) 38.4 % (21-51); MEAN CORPUSCULAR HEMOGLOBIN 32.5 PG (27.0-31.0); MEAN CORPUSCULAR HGB CONC 33.3 g/dL (33.0-36.5); MEAN CORPUSCULAR VOLUME 97.7 FL (78-98); MEAN PLATELET VOLUME 7.5 FL (7.4-10.4); MONOCYTES # (AUTO) 0.6 X10'3 (0-0.9); NEUTROPHILS # (AUTO) 2.9 X10'3 (1.8-7.7); NEUTROPHILS % (AUTO) 46.8 % (42-75); PLATELET COUNT 303 X10'3 (140-440); RED BLOOD COUNT 4.09 X10'6 (4.20-5.60); WHITE BLOOD COUNT 6.3 X10'3 (4.5-11.0)
[2024-08-14 14:41] LABS: ALANINE AMINOTRANSFERASE 23 U/L (12-78); ALBUMIN 3.7 G/DL (3.4-5.0); ALKALINE PHOSPHATASE 119 IU/L (46-116); ANION GAP 8 (8-16); ASPARTATE AMINO TRANSFERASE 19 U/L (10-37); BILIRUBIN,TOTAL 0.6 MG/DL (0.1-1.0); BLOOD UREA NITROGEN 10 MG/DL (7-18); BUN/CREATININE RATIO 14.3 (10.0-20.0); C-REACTIVE PROTEIN 0.18 MG/DL (0.0-0.5); CALCIUM 8.9 MG/DL (8.5-10.1); CHLORIDE 104 MMOL/L (99-107); GLUCOSE 86 MG/DL (70-104); SODIUM 140 MMOL/L (135-145); TOTAL CARBON DIOXIDE 28.5 MMOL/L (24-32); TOTAL PROTEIN 7.5 G/DL (6.4-8.2); eGFR 82 ML/MIN
== END 2024-08-14 23:59 | disposition home or self-care (01) ==
LOC: LAB 13:54
PROVIDERS: ATTEND Student in an Organized Health Care Education/Training Program
DX: Z79.899 Other long term (current) drug therapy (principal)
CPT/HCPCS: 36415; 80053; 85025; 85651; 86140

== ENCOUNTER 2024-11-17 12:25 | Outpatient (CLI) | payer MEDICAID ==
[2024-11-17 13:17] LABS: MEAN PLATELET VOLUME 7.6 FL (7.4-10.4); RED CELL DISTRIBUTION WIDTH 14.6 % (11.5-14.5)
[2024-11-17 13:30] LABS: CREATININE 0.88 MG/DL (0.40-0.90); TOTAL CARBON DIOXIDE 27.9 MMOL/L (24-32); eGFR 63 ML/MIN
== END 2024-11-17 23:59 | disposition home or self-care (01) ==
LOC: LAB 12:25
PROVIDERS: ATTEND Student in an Organized Health Care Education/Training Program
DX: Z79.899 Other long term (current) drug therapy (principal)
CPT/HCPCS: 36415; 80053; 85025; 85651; 86140